=== PATIENT | female | born 1980 | race Caucasian/White ===

== ENCOUNTER 2020-06-10 14:34 | Emergency (ER) | payer OTHER, SELFPAY ==
--- NOTE | 2020-06-10 14:49 | ED.GENADULT ---
HPI - General Adult General Chief complaint: Nausea/Vomiting/Diarrhea Stated complaint: nausea Time Seen by Provider: 06/10/20 14:53 Source: patient and RN notes reviewed Mode of arrival: ambulatory Limitations: no limitations History of Present Illness HPI narrative: She is a 39 years old female presents to the office for an evaluation of worsen nausea and vomiting. Symptom has been going off-and-on for a year or so. Symptom is worse at times and usually resolved on its own. Symptoms often started abruptly and and abruptly. She had a work-up with a doctor through a blood test with unremarkable finding. She did not follow-up after that. Her symptom has gotten worse after she got her ear cleanout a couple days ago. Denies new medication, food, or major life event changes. Denies chance of . Related Data Home Medications Medication Instructions Recorded Confirmed duloxetine 30 mg PO DAILY 06/10/20 06/10/20 gabapentin 300 mg BID 06/10/20 06/10/20 levonorgestrel-ethinyl estrad 1 tablet DAILY 06/10/20 06/10/20 Allergies Allergy/AdvReac Type Severity Reaction Status Date / Time metoclopramide Allergy Intermediate PARALYSIS Verified 06/10/20 14:38 prochlorperazine Allergy Intermediate PARALYSIS Verified 06/10/20 14:38 Review of Systems Review of Systems: Narrative: CONSTITUTIONAL: Denies fever CARDIOVASCULAR: Denies chest pain, palpitation RESPIRATORY: Denies dyspnea GASTROINTESTINAL: Denies abdominal pain, diarrhea. Reports nausea and vomiting SKIN: Denies rash MUSCULOSKELETAL: Denies acute back pain NEUROLOGIC: Denies lightheaded. Reports intermittent dizziness describes as motion sickness. All other systems reviewed are negative, except as documented in HPI. [facility] Past Medical History Medical History (Updated 06/10/20 @ 15:10 by TEX Chavez) Anxiety and depression Trigeminal neuralgia Surgical History Surgical History Hx of tonsillectomy Family History Family History (Updated 06/10/20 @ 15:02 by TEX Chavez) Mother Hiatal hernia Comments At time of signature, I agree with nursing past medical, surgical, social and family history. There is no relevant family history pertinent to the presenting complaint. Exam Narrative: Exam Narrative: GENERAL: This is a well-nourished, well-developed patient, in no apparent distress. EYES: PERRL. EMOI. Sclera clear/white. Vision is grossly intact. EARS: External ears normal, auditory canals clear and without drainage, TMs normal without perforation. Hearing grossly intact. NOSE: External nose normal with no obvious nasal discharge, nares without redness, no rhinorrhea. THROAT: Mucous membranes moist, posterior pharynx clear. NECK: Neck supple, non-tender without lymphadenopathy, masses or thyromegaly. CARDIOVASCULAR: Regular rate and rhythm without murmurs, gallops, or rubs. RESPIRATORY: Clear to auscultation. Breath sounds equal bilaterally. No wheezes, rales, or rhonchi. GASTROINTESTINAL: Abdomen soft, non-tender, nondistended. Bowel sounds are active. No hepato-splenomegaly, or palpable masses. No guarding. SKIN: warm, intact with no suspicious lesions or rash, good texture and turgor. NEURO: awake, alert, and oriented to person, place and time. There were no obvious focal neurologic abnormalities. Steady gait EXTREMITIES: Normal range of motion. Sri Coma Scale Eye Opening: Spontaneous 4 Sri Coma Scale Motor: Obeys Commands 6 Sri Coma Scale Verbal: Oriented 5 Medical Decision Making MDM Narrative Medical decision making narrative: Discharge instructions reviewed with patient, as well as provided in writing per nursing staff. The instructions also include specific and strict return/GO TO THE ER as well as f/u information. All questions have been answered, and the patient deny any further questions with discharge and discharge plan. Differential Diagnosis Dif
== END 2020-06-10 15:10 | disposition home or self-care (01) ==
PROVIDERS: Emergency Provider Nurse Practitioner; PCP Family Medicine
DX: R11.2 Nausea with vomiting, unspecified (principal); G50.0 Trigeminal neuralgia
CPT/HCPCS: 99213; G0463

== ENCOUNTER 2022-02-21 09:12 | Outpatient (CLI) | payer OTHER, SELFPAY ==
--- NOTE | ~2022-02-21 | US_ITS ---
EXAMINATION: US pelvic complete DATE: 02/21/2022 11:36 INDICATION: Abdominal pain TECHNIQUE: Multiple transabdominal and endovaginal sonographic images of the pelvis were obtained. COMPARISON: None. FINDINGS: The uterus measures 9.5 x 5.1 x 6.2 cm. The endometrial complex measures 10 mm. The right o vary measures 3.3 x 2.4 x 1.8 cm. The left ovary measures 3.6 x 2.3 x 1.9 cm. There is normal vascula r flow in the ovaries. There is no free fluid in the pelvis. IMPRESSION: 1. No sonographic correlate for the patient's symptoms. Reviewed, dictated and finalized at location F.
--- NOTE | ~2022-02-21 | US_ITS ---
US abdomen complete DATE: 02/21/2022 10:20 INDICATION: Abdominal pain TECHNIQUE: Real-time imaging and Doppler analysis of the abdomen COMPARISON: None FINDINGS: No hepatic or pancreatic space-occupying mass lesion. Normal hepatopedal portal venous flow . No gallstones or gallbladder wall thickening or abnormal pericholecystic fluid collection. Negative sonographic Figueroa's sign. The common bile duct measures 4.8 mm, normal. No renal mass lesion or hydronephrosis. Normal splenic size. Normal caliber of the abdominal aorta. The inferior vena cava is unremarkable. IMPRESSION: No significant abnormality Reviewed, dictated and finalized at Location [facility]. Reviewed, dictated and finalized at location A. IMPRESSION: No significant abnormality
== END 2022-02-21 09:13 | disposition home or self-care (01) ==
PROVIDERS: PCP Family Medicine; Visit Provider Nurse Practitioner Family
DX: R10.9 Unspecified abdominal pain (principal)
CPT/HCPCS: 76700; 76856

== ENCOUNTER 2023-06-06 09:37 | Outpatient (CLI) | payer OTHER, SELFPAY ==
--- NOTE | ~2023-06-06 | CT_ITS ---
EXAMINATION: CT sinus wo con DATE: 06/06/2023 09:56 INDICATION: Atypical facial pain TECHNIQUE: Computed tomography (CT) of the paranasal sinuses was performed without intravenous contra st. The dose-length product (DLP) was 328.15 mGy-cm. Iterative reconstruction was used. COMPARISON: None FINDINGS: There is normal development and pneumatization of the paranasal sinuses. The frontal, sphen oid, ethmoid, and maxillary sinuses are clear. The bilateral ostiomeatal complexes are patent. Visual ized soft tissues are unremarkable. IMPRESSION: Normal CT sinus findings Reviewed, dictated and finalized at location K. IMPRESSION: Normal CT sinus findings
== END 2023-06-06 09:38 | disposition home or self-care (01) ==
PROVIDERS: PCP Family Medicine; Visit Provider Otolaryngology
DX: R51.9 Headache, unspecified (principal)
CPT/HCPCS: 70486

== ENCOUNTER 2024-11-24 14:39 | Emergency (ER) | payer OTHER, SELFPAY ==
[2024-11-24 14:45] VITALS: BP 115/74; PULSE 88; RESP 16; TEMP 37.4; O2SAT 99
--- NOTE | 2024-11-24 14:47 | ED.FEMALEGU ---
HPI - Female Genitourinary General Chief complaint: Urogenital-Female Stated complaint: UTI Time Seen by Provider: 11/24/24 15:01 Source: patient, RN notes reviewed and old records reviewed Mode of arrival: ambulatory Limitations: no limitations History of Present Illness HPI Narrative: patient presents with complaints of 2 days of urinary frequency and burning. She reports mild back pain, mild abdominal pain. Denies tressa hematuria. Denies fever, chills, sweats. Denies any injury or trauma. Related Data Home Medications ?Medication ?Instructions ?Recorded ?Confirmed ?Last Taken ?Type duloxetine 30 mg capsule,delayed 30 mg PO DAILY 06/10/20 06/10/20 Unknown History release gabapentin 300 mg capsule 300 mg BID 06/10/20 06/10/20 Unknown History levonorgestrel-ethinyl estradiol 1 tablet DAILY 06/10/20 06/10/20 Unknown History 0.1 mg-20 mcg tablet rimegepant 75 mg disintegrating See Rx Instructions .Route 06/10/20 06/10/20 Unknown History tablet (Nurtec ODT) .COMPLEX PRN Migraine Headache Allergies Allergy/AdvReac Type Severity Reaction Status Date / Time metoclopramide Allergy Severe PARALYSIS Verified 11/24/24 14:42 prochlorperazine Allergy Severe PARALYSIS Verified 11/24/24 14:42 Review of Systems Review of Systems: All systems reviewed & are unremarkable except as noted in HPI and below Constitutional: Constitutional: Reports no additional constitutional complaints ENT: Reports system reviewed and no additional complaints, except as documented Cardiovascular: Cardiovascular: Reports no additional cardiovascular complaints Respiratory: Respiratory: Reports no additional respiratory complaints Gastrointestinal: Gastrointestinal: Reports no additional gastrointestinal complaints Genitourinary: Genitourinary: Reports no additional female genitourinary complaints, Reports as per HPI, Reports nocturia and Reports dysuria [facility] Past Medical History Medical History (Updated 11/24/24 @ 15:05 by Missy Lopez APRN) Anxiety and depression Trigeminal neuralgia Surgical History Surgical History Hx of tonsillectomy Family History Family History Mother Hiatal hernia Social History Social History : Female Comments At the time of my signature, I reviewed and agree with the nursing past medical, surgical, social, and family history. There is no relevant family history pertinent to the patient complaint. Exam Const: General: cooperative, no acute distress, alert and awake Orientation/consciousness: oriented to person, oriented to place and oriented to time HENMT: Head: normal to inspection Resp: Effort & Inspection: normal respiratory effort and able to speak in complete sentences Auscultation: clear to auscultation bilaterally, no crackles, no rales, no rhonchi and no wheezes Cardio: Palpation: normal PMI Rate: regular rate Rhythm: regular rhythm Heart sounds: S1 normal heart sound present and S2 normal heart sound present : General: Yes bladder normal to palpation and Yes no CVA tenderness Neuro: General: oriented to person, oriented to place and oriented to time Cranial nerves: Yes CN's II-XII intact bilaterally Psych: Appearance: grossly normal Thought process: Normal thought process present Insight: Good insight present (Psych) Judgement: Good judgement present (Psych) Course Course Level of Care: Express Care Visit Vital Signs Vital signs: Reviewed MDM - Female Genitourinary MDM Narrative Medical decision making narrative: Reassuring physical exam. No CVA tenderness. Nontoxic appearing. UA concerning for UTI. Start Macrobid. Culture sent. Discharge instructions reviewed with patient, as well as provided in writing per nursing staff. The instructions also include specific and strict return/GO TO THE ER as well as f/u information. All questions have been answered, and the patient deny any further questions with discharge and discharge plan. Some parts of this dictation were generated by voice recognition software and may contain typographical and/or grammatical inaccuracies. Differential Diagnosis Differential diagnosis: Likely urinary tract infection and cystitis Medical Records Attestation: I reviewed the patient's medical records. Lab Data Attestation: I reviewed the patient's lab results. Discharge Plan Discharge Clinical Impression: Urinary tract infection Qualifiers: Urinary tract infection type: site unspecified Hematuria presence: with hematuria Qualified Code(s): N39.0 - Urinary tract infection, site not specified Patient Disposition: Home, Self-Care Condition: Stable Instructions: Antibiotic Form, Urinary Tract Infection in Women (ED) Additional Instructions: take medications as prescribed. Follow-up with primary care provider. Emergency department for new or worse symptoms Patient Language: [place] Prescriptions: New nitrofurantoin monohyd/m-cryst [Macrobid] 100 mg capsule 100 mg PO Q12H 5 Days Qty: 10 0RF Rx Instructions: must administer with a meal/food No Action levonorgestrel-ethinyl estrad 0.1-20 mg-mcg tablet 1 tablet DAILY gabapentin 300 mg capsule 300 mg BID duloxetine 30 mg capsule,delayed release(DR/EC) 30 mg PO DAILY ondansetron HCl [Zofran] 4 mg tablet 4 mg PO Q6H PRN (Reason: nausea and vomiting) Qty: 15 0RF Nurtec ODT 75 mg tablet,disintegrating See Rx Instructions .ROUTE .COMPLEX PRN (Reason: Migraine Headache) Rx Instructions: 75 mg Follow-up/Referrals: Lukasz,MD [place] [Primary Care Provider] - 2 Weeks Time of Disposition: 15:06
[2024-11-24 14:55] LABS: EDUAAPPEAR Cloudy; EDUABILI Negative (Negative); EDUABLOOD Trace (Negative); EDUACOLOR1 Dark; EDUAGLUCOSE Negative (Negative); EDUAKETONE Trace (Negative); EDUALEUKO Trace (Negative); EDUANITRATE Negative (Negative); EDUAPROTEIN 2+ (Negative); EDUAUROBILI 0.2
--- OUTSIDE RECORDS SUMMARY | 2024-11-24 15:25 | XMS_ITS | Clinical Summary ---
Author Organization [facility] Virtual Care Address [address] [place] [phone] Phone Care Team Providers Care Human Resource Adviser Name Role Phone AnivalSandhya moya YESI Primary Care Provider [phone] Allergies Active Allergy Reactions Criticality Noted Date Comments Naproxen Unknown 06/24/2023 Metoclopramide Dystonia High 05/06/2023 Medications rimegepant (Nurtec ODT) tablet,disinte grating Nurtec ODT 75 mg disintegrating tablet Active cholecalcifero l (VITAMIN D-3) 2000 unit capsule Take 1 capsule (2,000 Units total) by mouth daily Active PARoxetine (PAXIL) 20 mg tabletIndicati ons:Anxiety with Depression Take 1 tablet (20 mg total) by mouth every morning 90 tablet 3 4 025 Active cariprazine (Vraylar) 1.5 mg capsule capsuleIndicat ions:Moderate episode of recurrent major depressive disorder (HCC) Take 1 capsule (1.5 mg total) by mouth daily 90 capsule 3 4 Active Active Problems Problem Noted Date Diagnosed Date Generalized anxiety disorder 06/25/2024 Assessment & Plan (06/25/2024 11:41 AM CDT): We will continue Vraylar 1.5 mg daily with the intent to decrease Paxil to 10 mg over the next several weeks. She will follow up in 3 months. Patient denies any SI/HI. Counseling is encouraged. Recommend exercise and healthy diet. Patient is having libido side effects from the Paxil. We are going to decrease it. I discussed with her possibly stopping the Paxil and increasing the Vraylar 3 mg daily. Vraylar is known to have less sexual side effects. I discussed with patient that Vraylar isn't indicated for anxiety but often. She will continue Paxil for now. We will adjust medications if needed. BMI 24.0-24.9, adult 02/24/2024 Assessment & Plan (06/25/2024 11:38 AM CDT): Patient's weight is still within a normal BMI however she has gained approximately 15 lb since starting Paxil and Vraylar. She would like to work on losing 10 lb. She would like to do short term phentermine. I am in agreement with this. I also discussed utilizing weight lifting to help increase metabolism. She will follow up in 3 months Abdominal fullness 02/11/2024 Gastroesophageal reflux disease 10/15/2023 Assessment & Plan (06/25/2024 11:39 AM CDT): Tums p.r.n. Assessment & Plan (12/11/2023 1:38 PM WOOD CARVING LATHE OPERATOR): Currently controlled without regular medication. Continue Tums p.r.n. as needed. Abnormal uterine bleeding (AUB) 07/25/2023 Assessment & Plan (07/25/2023 10:47 AM CDT): Patient reports abnormal uterine bleeding. Hormone testing for menopause. Patient reports it. Approximately every 2 weeks. We discussed using progesterone only therapy. Patient would like to try it. Recurrent major depression 06/24/2023 Assessment & Plan (06/25/2024 11:39 AM CDT): We will continue Vraylar 1.5 mg daily with the intent to decrease Paxil to 10 mg over the next several weeks. She will follow up in 3 months. Patient denies any SI/HI. Counseling is encouraged. Recommend exercise and healthy diet. Patient is having libido side effects from the Paxil. We are going to decrease it. I discussed with her possibly stopping the Paxil and increasing the Vraylar 3 mg daily. Vraylar is known to have less sexual side effects. Assessment & Plan (12/11/2023 1:36 PM WOOD CARVING LATHE OPERATOR): Increase paxil to 20 mg. Pt is feeling better on 10mg but feels she could improve. We will start Vraylar 1.5 mg daily. Follow up in 6 weeks. Assessment & Plan (07/25/2023 10:40 AM CDT): Increase paxil to 20 mg. Pt is feeling better on 10mg but feels she could improve. Assessment & Plan (06/24/2023 3:03 PM CDT): Patient reports being depressed and anxious. Her PHQ is elevated at 18. She relates this to ongoing health issues. We will start Paxil 10 mg tablets daily and follow-up in 1 month. She denies SI/HI. We will re-evaluate in 1 month at her well-woman exam. Inguinal lymphadenopathy 03/05/2023 Assessment & Plan (06/24/2023 2:22 PM CDT): Hx of inguinal lymphadenopathy and chronic LLQ pain. Will order abd pelvis CT Subclinical hypothyroidism 03/02/2020 Assessment & Plan (12/11/2023 1:36 PM WOOD CARVING LATHE OPERATOR): Labs normal. Assessment & Plan (06/24/2023 2:10 PM CDT): History of subclinical hypothyroidism labs pending. Hyperlipidemia 02/02/2019 Assessment & Plan (06/25/2024 11:39 AM CDT): Continue following a heart healthy diet. Assessment & Plan (12/11/2023 1:38 PM WOOD CARVING LATHE OPERATOR): Within normal limits. Continue a heart healthy Assessment & Plan (06/24/2023 2:11 PM CDT): History of elevated hyperlipidemia labs pending. Vitamin D deficiency 02/02/2019 Assessment & Plan (06/25/2024 11:39 AM CDT): Continue vitamin-D supplement. Assessment & Plan (12/11/2023 1:37 PM WOOD CARVING LATHE OPERATOR): Continue vitamin-D supplement. Assessment & Plan (06/24/2023 2:10 PM CDT): History of vitamin-D deficiency labs pending. Resolved Problems Problem Noted Date Diagnosed Date Resolved Date Venous congestion 12/18/2023 06/25/2024 Assessment & Plan (12/18/2023 2:57 PM WOOD CARVING LATHE OPERATOR): Impression: Patient has discoloration to the toes of bilateral feet while in the dependent position. She denies any symptoms of claudication, ischemic rest pain or ulcerations to her lower extremity. Patient has palpable pulses to bilateral lower extremities. Plan: No surgical interventions are indicated. -patient to follow-up on an as-needed basis. LUQ abdominal pain 10/15/2023 4 Abnormal loss of weight 10/15/202305/29 Assessment & Plan (12/11/2023 1:40 PM WOOD CARVING LATHE OPERATOR): Weight loss has plateaued. Patient is currently at a BMI of 21.97. She is gained 9 lb since last visit, however this is with her clothes And shoes on. Nausea without vomiting 10/15/202305/29 Encounter for well woman jenaro ricks with routine gynecological exam 07/25/2023 06/25/2024 Assessment & Plan (07/25/2023 10:39 AM CDT): Pap smear with HPV cotesting completed. Mammogram completed. We will notify the patient of all results. Follow up in one year or sooner if needed. Patient verbalizes understanding regarding plan of care and all questions answered. LLQ abdominal pain 06/24/2023 4 Mass of right breast 03/20/2023 024 Pain of right breast 03/05/2023 023 Axillary lymphadenopathy 02/04/2023 Assessment & Plan (06/24/2023 2:13 PM CDT): There is left axillary lymphadenopathy present on exam today. Due to weight loss, and ongoing pain that patient is experiencing we will obtain chest CT. Immunizations Name Administration Dates Next Due Influenza, Quadrivalent, Keri l Culture-based MDCK, Antibiotic Free, Intramuscular 10/01/2018 Influenza, Quadrivalent, Keri l Culture-based MDCK, Preservative Free, Antibiotic Free, Intramuscular 08/15/2023,08/31/2021 Influenza, Quadrivalent, Spl it, Intramuscular 09/01/2020,09/10/2019 Influenza, Quadrivalent, Spl it, Preservative Free, Intramuscular 08/21/2022,09/01/2020,09/02/2017 Influenza, Unspecified 12/11/2023(Deferr ed: Patient decision),07/28/2022(Deferred: Patient decision),09/10/2019,09/08/2013,2011 [employer] ([employer] SARS-CoV-2 Vaccination 02/01/2021 Tdap 09/02/2017 Surgical History Surgery Date Site/Laterality Comments TONSILLECTOMY 10/27/2002 - 10/26/2003 COLONOSCOPY 10 years ago UPPER GASTROINTESTINAL ENDOSCOPY 01/28/2024 Medical History Medical History Date Comments Depression Headache History of chicken pox Family History Medical History Relation Name Comments Multiple sclerosis Father Stomach cancer Maternal Grandmother Diverticulitis Mother Hyperlipidemia Mother Hypertension Mother Pancreatic cancer Paternal Grandfather Relation Name Status Comments Father Maternal Grandmother Mother Paternal Grandfather Social History Tobacco Use Types Packs/Day Years Used Date Smoking Tobacco: Never Smokeless Tobacco: Never Tobacco Cessation:Counseling Given: Not Answered AUDIT-C Answer Date Recorded Q1: How often do you have a drink containing alc ohol? Monthly or less 06/25/2024 Q2: How many drinks containi ng alcohol do you have on a typical day when you are drinking? 1 or 2 06/25/2024 Q3: How often do you have si x or more drinks on one occasion? Never 06/25/2024 PHQ-2 Answer Date Recorded PHQ-2 Total Score (If total score is 3 or more points, staff should administer the PHQ-9) 0 06/25/2024 Personal Safety Answer Date Recorded Have you ever been in or are you currently in a harmful physical or emotional relationship or is someone making you feel afraid or unsafe? Denies 01/28/2024 Comments No Sex and Gender Information Value Date Recorded Sex Assigned at Not on file Legal Sex Female 5:46 AM WOOD CARVING LATHE OPERATOR Gender Identity Female 12/07/2023 12:22 AM WOOD CARVING LATHE OPERATOR Sexual Orientation Straight 12/07/2023 12 :22 AM WOOD CARVING LATHE OPERATOR Obstetrics History Last Filed Vital Signs Vital Sign Reading Time Taken Comments Blood Pressure 122/74 06/25/2024 9:39 AM CDT Pulse 72 06/25/2024 9:39 AM CDT Temperature 36.8 ??C (98.2 ??F) 06/25/2024 9:39 AM CD T Respiratory Rate 16 06/25/2024 9:39 AM CDT Oxygen Saturation 96% 06/25/2024 9:39 AM CDT Inhaled Oxygen Concentration - - Weight 63.2 kg (139 lb 6.4 oz) 06/25/2024 9:39 A M CDT Height 160 cm (5' 3 ) 06/25/2024 9:39 AM CDT Body Mass Index 24.69 06/25/2024 9:39 AM CDT Plan of Treatment Health Maintenance Due Date Last Done Comments Hepatitis C Screening 1982 Hepatitis B Screening 2000 Breast Cancer Screening-Mammogram 05/06/2024 05/06/2023 Covid-19 Vaccine ( season) 2024 08/21/2022, 02/01/2021 Influenza Vaccine (#1) 2024 , 08/21/2022, 08/31/2021, Additional history exists Cervical Cancer Screening 07/25/2024 07/25/2023, Regular Well Visit/Exam 18-64 07/25/2024 07/25/2023 Depression Screening 06/25/2025 06/25/2024, 02/24/2024, 12/11/2023, Additional history exists DTaP/Tdap/Td Vaccine (2 - Td or Tdap) 09/02/2027 09/02/2017 HPV Vaccines Aged Out No longer eligi ble based on patient's age to complete this topic Pneumococcal vaccine <65 Aged Out No longer eligible based on patient's age to complete this topic Procedures Procedure Name Priority Date/Time Associated Diagnosis Comments HIGH RISK HPV DNA DETECTION WITH GENOTYPING Routine 07/25/2023 10:25 AM CDT Cervical cancer screening from Last 3 Months or Most Recently Relevant to Health Maintenance Results * High Risk HPV DNA Detection with Genotyping (Molecular component) (07/25/2023 10:25 AM CDT) HPV HR 16 Not Detected Not Detected JUANIS MCGUIRE Comment:Testing performed by : [facility], [address] [place]., [address] HPV HR 18 Not Detected Not Detected JUANIS MCGUIRE Comment:Testing performed by : [facility], [address] [place]., [address] HPV HR Non 16/18 Not Detected Not Detected JUANIS MCGUIRE Comment: Interpretive Data Nucleic acid amplification for detection of high-risk Human Papilloma virus (HPV) is performed by the Rafaela Ernesto 6800 HPV test. ??This assay specifically detects HPV-16 and HPV-18 genotypes. ??The following HPV genotypes are detected as high-risk HPV: ?? HPV-31, 33, 35, ,39, 45, 51, 52, 56, 58, 59, 66, and 68. ??This assay has been approved by the [place] Food and Drug Administration for detection of HPV in cervical specimens collected by a physician using an endocervical brush/spatula or cervical broom and placed in the ThinPrep Pap Test PreservCyt collection containers. ??The performance characteristics of this test have been verified by the [facility] Molecular Infectious Disease laboratory. Correlate with separately reported cytology results, as applicable. Interpretive data last revised 23 Testing performed by: [facility], [address] [place]., [address] Endocervical 07/25/2023 10:2 5 AM CDT 07/28/2023 12:43 PM CDT Narrative JUANIS MCGUIRE - 07/29/2023 1:57 AM CDT Clinical history and diagnosis->screening Testing type->Screening Last menstrual period (date if known)->unknown Menstrual status->Irregular Contraceptive use->None Previous atypical cytology->None us Sandhya Mosquera NP LAB BODY FLUIDS AND STOOLS OR DERABLES Final Result Performing Organization Address City/State/[facility] [place] Phone Number JUANIS MH [address] [facility] Department of Laboratories [place], [place] [phone] from Last 3 Months or Most Recently Relevant to Health Maintenance Insurance [facility] [employer] [facility] [employer] Address: [address] [address] [place] [address] [facility] [employer] [facility] [employer] Address: [address] [address] [place] [address] [facility] [employer] [facility] [employer] Address: [address] [address] [place] [address] Advance Directives For more information, please contact: [phone] * Full Code (Latest Code Status on File) Date Activated Date Inactivated Comments 01/28/2024 10:55 AM 01/28/2024 5:56 PM * Full Code Date Activated Date Inactivated Comments 01/28/2024 10:55 AM 01/28/2024 10:55 AM Care Teams Human Resource Adviser Relationship Specialty Start Date End Date Sandhya Mosquera NP [address] [place] [address] PCP - General Internal Medicine 06/24/23
--- OUTSIDE RECORDS SUMMARY | 2024-11-24 15:25 | XMS_ITS | Data Portability ---
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 Explained about different options. Will do labs and CT A&P wo. Educated pt about insurance limitations and delay for getting authorization. Pt declined to do labs here (due to cost issues). Pt declined for Rx med. OTC meds as directed. Good liquid and fiber intake explained. BP diary education given and call us if any concerns. Educated pt about alarming symptoms to monitor at home and call us back or get checked in ED. Pt verbalized understanding it. F/u in 1 week. Not available 01/02/2023 12:39:43 Plan of Treatment Reminders Order Date Submit Date Provider Last Modified By Organization Details Last Modified Time Details Appointments None recorded. Lab urinalysis complete, reflex culture 2022 023 [facility], [address], [place], [address], 3 10:04:07 CBC w/ auto diff 2022 023 ANITA [facility], [address], [address], [place], [address], 3 09:42:33 CMP, serum or plasma 2022 023 ANITA [facility], [address], [address], [place], [address], 3 09:42:33 lipase, serum or plasma 2022 023 [email or web address] [facility], [address], [address], [place], [address], 3 10:04:06 amylase, serum or plasma 2022 023 [email or web address] [facility], [address], [address], [place], [address], 3 10:04:07 ESR (erythrocyt e sedimentati on rate), blood 2022 023 ANITA [facility], [address], [address], [place], [address], 3 09:42:33 beta-HCG, qualitative , serum or plasma 2022 023 [facility], [address], [address], [place], [address], 3 10:04:07 Referral None recorded. Procedures None recorded. Surgeries None recorded. Imaging CT, abdomen + pelvis, w/o contrast - please call pt to schedule Lt sided abdominal pain, Suprapubic area pain for last 1 week, not getting better 2022 023 [facility], [address] [place] [address] [address], [place], [address], 3 08:17:47 MAMMO, screening, digital, bilateral 2022 023 [email or web address] Not available 09:40:19 US, neck, soft tissue - *Please call patient to schedule* 2022 023 ANITA Not available 05/23/202 3 14:22:57 US, axilla 2022 023 Not available 3 08:48:00 US, breast, unilateral - knots to right lateral breast. Mammogram negative. Are these lymph nodes?? 2022 023 [email or web address] Not available 3 09:19:00 Medication Orders None recorded. Patient TargetsNo targets recorded. Patient Instructions Encounter Date Encounter Id Patient Instructions Last Modified By Organization Details Last Modified Time 02/04/2023 [id number] [email or web address] Not available 02/04 08:26:41 Reason for Referral None Reported. Results Created Date Observation Date Name Description Value Unit Range Abnormal Flag Note LastModifiedBy Organization Detail LastModifiedTime 02/22/20 22 02/21/2022 US, abdom en + pelvi s No observ ation record ed. [address], [address], 01/02/2023 11:36:35 02/22/20 22 02/21/2022 US, abdom en + pelvi s No observ ation record ed. [address], [address], 01/02/2023 11:36:35 02/08/20 23 02/07/2023 MAMMO , scree kathy, digit al, bilat eral [facility] [address] [place], [place] [id number] [phone] Patien t Name: PINO AC Access ion #: [id number] Sex: F : 1979 5 Locati on: RAD Attend ing Physic rose: PALLAVI ROJO Orderi ng Physic rose: PALLAVI ROJO Exam Date: 023 7:13 AM Exam Name: MG SCRLorenzo BREAST DAO BILAT Admitt ing Diagno sis(es ): MAMMOG MERCEDES REPORT - FINAL EXAM: MG SCRN BREAST DAO BILAT HISTOR Y: SCREEN ING MAMMOG ANALIA COMPAR GALILEA: None TECHNI QUE: Bilate ral CC and MLO views of the breast s were perfor med. Digita l Mammog mercedes images were obtain ed. CAD (compu ter assist ed detect ion) was utiliz ed. 3D Digita l breast tomosy nthesi s was perfor med and used in the interp retati on of images . FINDIN GS: The breast s are extrem rain dense, which lowers the sensit ivity of mammog mercedes. No masses , asymme tries, suspic ious calcif icatio ns, or betty ectura l Page 1 of 2 [facility] [place] Margarita martin Name: PINO AC Access ion #: [id number] Sex: F : 1979 5 Exam Date: 023 7:13 AM Exam Name: MG SCRN BREAST DAO BILAT Admitt ing Diagno sis(es ): distor tion are seen. IMPRES BOOGIE: BIRADS 1: Assess ment comple te. Negati ve. Recomm end annual screen ing mammog mercedes. Accord ing to the [employer], yearly mammog charissa are recomm ended starti ng at age 40 and contin uing as long as the woman is in good health . Clinic al Breast Exam should be part of the period ic health exam-a bout every 3 years for women in their 20s and 30s and every year for women 40 and over. Breast self-e xam is an option for women in their 20s. Any breast change noted on the breast self-e xam she would be report ed prompt ly to the margarita martin[facility] er. A negati ve mammog mercedes report should not discou rage follow -up or biopsy of a clinic ally signif icant findin g and/or abnorm ality. Dense breast tissue may obscur e small neopla sms. This margarita martin has been entere d into a mammog mercedes remind er system with a target date for her next mammog analia. Create d and electr onical ly signed by: Dayne edwarsd MD Signed Date: 4:55 PM (CT) Dictat ed by: Dayne edwards MD DD: 4:55 PM (CT) DT: 4:55 PM (CT) Page 2 of 2 [email or web address] [facility] (Imaging) [address], [place], [address], 03/03/2023 09:40:19 03/18/20 23 03/18/2023 US, axill a [facility] [address] [facility] [address], [place] [address] Margarita martin Name: PINO AC Access ion #: [id number] Sex: F : 1979 5 Locati on: RAD Attend ing Physic rose: PALLAVI ROJO Orderi ng Physic rose: PALLAVI ROJO Exam Date: 12:41 PM Exam Name: US BREAST LIMITE D RT Admitt ing Diagno sis(es ): RADIOL OGY REPORT - FINAL EXAM: US BREAST LIMITE D RT HISTOR Y: rt breast pain and rt axilla lympha denopa thy 42-yea r-old female with right breast pain and questi onable axilla ry palpab le abnorm ality. COMPAR GALILEA: Mammog mercedes dated0 . TECHNI QUE: Focuse d ultras ound evalua tion of the right upper outer breast and right axilla was perfor med. FINDIN GS: No suspic ious solid masses or cystic lesion s are identi fied about the right upper outer breast or axilla . There is a benign -appea ring intram ammary lymph node in the right upper outer breast 10 o'cloc k locati on 5 cm from the nipple with thin cortic es, promin ent fatty hilum, measur ing up to 6.[address] Page 1 of 2 [facility] [place] Margarita martin Name: PINO AC Access ion #: [id number] Sex: F : 1979 7 Exam Date: 12:41 PM Exam Name: US BREAST LIMITE D RT Admitt ing Diagno sis(es ): dimens ion. There are multip le benign -appea ring lymph nodes in the right axilla , the larges t of which measur es up to [address] dimens ion, thin cortex and promin ent fatty hilum. IMPRES BOOGIE: BIRADS 2: Assess ment comple te. Benign findin gs. Benign -appea ring lymph nodes are identi fied in the right upper outer breast and right axilla . No imagin g follow -up is necess evie for these benign lesion s. Recomm end return ing to annual screen ing mammog mercedes. Create d and electr onical ly signed by: Jair machuca MD Signed Date: 1:03 PM (CT) Dictat ed by: Jair machuca MD DD: 1:03 PM (CT) DT: 1:03 PM (CT) Page 2 of 2 [email or web address] [facility] (Imaging) [address] [place], [address], 03/20/2023 12:45:46 03/18/20 23 03/18/2023 US, head + neck, soft tissu e [facility] [address] [address] [phone] Patien t Name: PINO AC Y Access ion #: [id number] Sex: F : 1979 5 Locati on: RAD Attend ing Physic rose: PALLAVI ROJO Orderi ng Physic rose: PALLAVI ROJO Exam Date: 12:41 PM Exam Name: US NECK HEAD SOFT TISSUE Admitt ing Diagno sis(es ): RADIOL OGY REPORT - FINAL EXAM: US NECK HEAD SOFT TISSUE HISTOR Y: cervic al lympha denopa thy 42-yea r-old female with right infra- auricu lar palpab le abnorm ality. COMPAR GALILEA: None availa ble. TECHNI QUE: Ultras ound examin ation of the right infra- auricu lar region was perfor med. FINDIN GS: See below. IMPRES BOOGIE: 1. No masses , enlarg ed lymph nodes, or abnorm al fluid collec tions are identi fied in the right infra- auricu lar region . Page 1 of 2 [facility] mario Name: PINO AC Access ion #: [id number] Sex: F : 1979 5 Exam Date: 12:41 PM Exam Name: US NECK HEAD SOFT TISSUE Admitt ing Diagno sis(es ): 2. Normal sonogr aphic evalua tion of the right paroti d gland. Create d and electr onical ly signed by: Jair machuca MD Signed Date: 1:18 PM (CT) Dictat ed by: Jair machuca MD DD: 1:18 PM (CT) DT: 1:18 PM (CT) Page [address] (Imaging) [address] [place], [address], 03/20/2023 12:45:11 03/18/2003/18/2023 US, neck, soft tissu e No observ ation record ed. [address] [place], [address], 03/19/2023 10:14:51 05/06/2005/06/2023 US, breas t, unila teral No observ ation record ed. [facility] [address] [place] [address], [address], 05/07/2023 16:19:55 06/06/2006/06/2023 CT, sinus es, w/o contr ast No observ ation record ed. [email or web address] [address], [place], [address], 06/07/2023 13:59:37 Result Notes None recorded. 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 2022 Marycarmen Rojo NP [address], [address], [place], [address] , [employer] [facility] [employer] 3 08:26:22 Pain of right breast 2918550198 Active 2022 Marycarmen Rojo NP [address], [address], [place], [address] , [employer] 3 12:29:31 Cervical lymphaden opathy 957329869 Active 2022 Marycarmen Rojo NP [address], [place] [address], [place], [address] , [employer] 3 12:30:23 Mass of right breast 90095963572 713794 Active 2022 Marycarmen Rojo NP [address], [address], [place], [address] , [employer] [facility] [employer] 3 12:46:12 Impacted cerumen of bilateral ears 43247649992 63998 Active 2018 Not Available [facility] 3 04:53:44 Wants to lose weight 249436528 Active 2019 Not Available [employer] 3 04:53:44 Overweigh t 605199582 Active 2018 Not Available [facility] 3 04:53:44 Trigemina l neuralgia 31900024 Active 2016 Not Available [facility] 3 04:53:44 Vitamin D deficienc y 70690541 Active 2018 Not Available [facility] 3 04:53:44 Depressiv e disorder 00707508 Active 2018 Not Available [facility] 3 04:53:44 Elevated blood-pre ssure reading without diagnosis of hypertens ion 445085278 Active 2019 Not Available [facility] 3 04:53:44 Migraine 46560807 Active 2016 Not Available [facility] 3 04:53:45 Chronic sinusitis 90549507 Active 2016 Not Available [facility] 3 04:53:45 Subclinic al hypothyro idism 83839955 Active 2019 Not Available [facility] 3 04:53:45 Hyperlipi demia 52112470 Active 2018 Not Available [facility] 3 04:53:45 Joint pain 74446443 Active Not Available [facility] 3 04:53:45 Dysthymia 31031626 Completed 201603/04/2019 Not Available [facility] 3 04:53:45 Problem Notes None recorded. Procedures Surgical History Date Name Laterality Status Provider Name and Address Organization Details Recorded Time tonsillectomy completed Not Available [facility] th 12/25/2022 04:42:48 [place] [facility] completed Not Available [facility] 12/25/2022 04:42:48 Imaging Results Imaging Date Name Status LastModified by Organiz ation Details LastModified Time 02/21/2022 US, abdomen + pelvis completed [address] [place] [address], [address], 01/02/2023 11:36:35 02/21/2022 US, abdomen + pelvis completed [email or web address] [address], [place], [address], 01/02/2023 11:36:35 02/07/2023 MAMMO, screening, digital, bilateral completed [email or web address] [facility] (Imaging) [address] [place], [address], 03/03/2023 09:40:19 03/18/2023 US, axilla completed [email or web address] [facility] (Imaging) [address] [place], [address], 03/20/2023 12:45:46 03/18/2023 US, head + neck, soft tissue completed [email or web address] [facility] (Imaging) [address] [place], [address], 03/20/2023 12:45:11 03/18/2023 US, neck, soft tissue completed [email or web address] [facility] [address] [place], [address], 03/19/2023 10:14:51 05/06/2023 US, breast, unilateral completed [facility] [address] [place] [address], [address], 05/07/2023 16:19:55 06/06/2023 CT, sinuses, w/o contrast completed [email or web address] [place] [address], [address], 06/07/2023 13:59:37 Procedure Notes None recorded. Medical Equipment None Reported. Allergies Allergen ID Allergen Name Allergen Category Reaction Reaction Severity Criticality Documentation Date Start Date Code Code System Note Provider Name and Address Organization Details Recorded Time 8767 Reglan medicatio n other Not available Not available 12/25/2022 9230 RxNorm Not Available [facility] 3 05:06:34 8768 naproxen medicatio n Not available Not available Not available 12/25/2022 7258 RxNorm Not Available [facility] 3 05:06:34 8769 Compazine medicatio n other Not available Not available 12/25/2022 14783 6 RxNorm Not Available [facility] 3 05:06:34 Medications Name Sig Start Date Stop Date Status Note LastModified by Organization Details LastModified Time amoxicilli n 500 mg capsule 04/30 completed Not Available Not Available Not Available clindamyci n HCl 300 mg capsule Take 1 capsule 3 times a day by oral route for 7 days. 04/30 completed Not Available Not Available Not Available Lidocaine Viscous 2 % mucosal solution [facility] EXPECT[facility] ATE 1 TABLESPO ON (15 ML) BY MOUTH 2 3 TIMES DAILY 01/22 completed Not Available Not Available Not Available fluconazol e 150 mg tablet 02/22 completed Not Available Not Available Not Available levonorges trel-ethin yl estradiol 0.1 mg-20 mcg tablet TAKE 1 TABLET DAILY active Not Available Not Available No t Available carbamazep ine ER 100 mg tablet,ext ended release,12 hr TAKE 1 TABLET BY MOUTH EVERY 12 HOURS 07/03 completed Not Available Not Available Not Available ondansetro n HCl 4 mg tablet TAKE 1 TABLET BY MOUTH EVERY 6 HOURS NEEDED FOR NAUSEA AND VOMITING 07/06 completed Not Available Not Available Not Available rizatripta n 10 mg tablet Take 1 tablet as needed by oral route as directed for 30 days. active Use half to full tab at the onset of migrain e. Do not take more than 1 pill in 24 hrs. Not Available Not Available Not Available Debrox 6.5 % ear drops INSTILL 4 DROPS INTO AFFECTED EAR(S) BY OTIC ROUTE 2 TIMES PER DAY 07/06 completed Not Available Not Available Not Available phentermin e 15 mg capsule Take 1 capsule every day by oral route before meals for 30 days. active [address] Not Available Not Available Not Available phentermin e 37.5 mg tablet Take 1 tablet every other day by oral route in the morning for 30 days. active Take 30 [address] Not Available Not Available Not Available acetaminop hen 300 mg-codeine 30 mg tablet TAKE 1 TABLET BY MOUTH 3 TIMES A DAY NEEDED 02/02 completed Not Available Not Available Not Available phentermin e 30 mg capsule TAKE 1 CAPSULE BY MOUTH EVERY DAY BEFORE A MEAL 07/06 completed Not Available Not Available Not Available amoxicilli n 500 mg tablet Take 1 tablet every 12 hours by oral route for 7 days. 04/30 completed Not Available Not Available Not Available amoxicilli n 875 mg tablet 02/22 completed Not Available Not Available Not Available carbamazep ine ER 200 mg tablet,ext ended release,12 hr 1 tab po q AM and 2 tab po q PM 07/31 completed Not Available Not Available Not Available rizatripta n 10 mg disintegra ting tablet 07/03 completed Not Available Not Available Not Available nystatin-t riamcinolo ne 100,000 unit/g-0.1 % topical cream 02/22 completed Not Available Not Available Not Available ibuprofen 200 mg tablet TAKE 1 TABLET BY MOUTH EVERY 6 HOURS FOR 10 DAYS 02/22 completed Not Available Not Available Not Available gabapentin 300 mg capsule TAKE 1 CAPSULE BY MOUTH TWO TIMES A DAY DIRECTED 01/22 completed Not Available Not Available Not Available diclofenac sodium 75 mg tablet,del ayed release Take 1 tablet twice a day by oral route as needed. active Not Available Not Available No t Available ergocalcif vincent (vitamin D2) 1,250 mcg (50,000 unit) capsule TAKE ONE CAPSULE BY MOUTH ONE TIME PER WEEK DIRECTED 01/22 completed Not Available Not Available Not Available sertraline 50 mg tablet TAKE 1 TABLET DAILY 03/04 completed Not Available Not Available Not Available amoxicilli n 875 mg-potassi um clavulanat e 125 mg tablet TAKE 1 TABLET BY MOUTH EVERY 12 HOURS FOR 10 DAYS 09/02 completed Not Available Not Available Not Available Ciprodex 0.3 %-0.1 % ear drops,susp ension 02/22 completed Not Available Not Available Not Available duloxetine 20 mg capsule,de layed release Take 1 capsule every day by oral route as directed for 30 days. active Not Available Not Available No t Available duloxetine 30 mg capsule,de layed release TAKE 1 CAPSULE BY MOUTH EVERY DAY 01/22 completed Not Available Not Available Not Available tizanidine 2 mg capsule TAKE ONE CAPSULE BY MOUTH EVERY 12 HOURS FOR 15 DAYS 07/03 completed Not Available Not Available Not Available hydrocodon e 5 mg-acetami nophen 300 mg tablet 02/22 completed Not Available Not Available Not Available Nurtec ODT 75 mg disintegra ting tablet DISSOLVE 1 TABLET BY MOUTH NEEDED AND DIRECTED FOR 30 DAYS active Not Available Not Available No t Available Vitals Date Recorded Body mass index (BMI) Body height Oxygen saturation Oxygen saturation in Arterial blood by Pulse oximetry Heart rate Body temperature Body weight Systolic blood pressure Diastolic blood pressure Provider Name and Address Organization Details Last Updated DateTime 2 23.6 kg/m2 160.02 cm 98 % 98 % 71 /min 98.1 [degF] 38755.5 g 122 mm[Hg] 80 mm[Hg] Not Available [employer] 3 04:50:28 Date Recorded Body height Body mass index (BMI) Body weight Body temperature Oxygen saturation Oxygen saturation in Arterial blood by Pulse oximetry Respiratory rate Provider Name and Address Organization Details Last Updated DateTime 3 160.02 cm 20.9 kg/m2 92172.9 g 97.9 [degF] 99 % 99 % 18 /min Chiquis Parra RN [facility] 3 11:31:10 Date Recorded Heart rate Systolic blood pressure Diastolic blood pressure Provider Name and Address Organization Details Last Updated DateTime 01/02/2023 95 /min 152 mm[Hg] 90 mm[Hg] Trenton Lal MD [address] [place] [address], [address], [place] [employer] [facility] [employer] 01/02/2023 12:38:00 Date Recorded Body height Body mass index (BMI) Body weight Body temperature Heart rate Respiratory rate Oxygen saturation Oxygen saturation in Arterial blood by Pulse oximetry Systolic blood pressure Diastolic blood pressure Provider Name and Address Organization Details Last Updated DateTime 3 160.02 cm 20.8 kg/m2 63083.1 1 g 98.3 [degF] 84 /min 16 /min 99 % 99 % 140 mm[Hg] 80 mm[Hg] Marycarmen Condon RN [facility] [employer] 3 08:08:51 Date Recorded Body height Body mass index (BMI) Body weight Body temperature Heart rate Respiratory rate Oxygen saturation Oxygen saturation in Arterial blood by Pulse oximetry Systolic blood pressure Diastolic blood pressure Provider Name and Address Organization Details Last Updated DateTime 3 160.02 cm 20.2 kg/m2 85638.8 8 g 98.2 [degF] 105 /min 16 /min 99 % 99 % 144 mm[Hg] 88 mm[Hg] Marycarmen Condon RN [facility] [employer] 12:08:43 Social History Question Answer Notes LastModified by Organization Details LastModified Time Tobacco Smoking Status Former Smoker KAYODE [facility] [place] [employer] 02/04/2023 07:57:15 Do You Have An Advance Directive? No [id number] Information not available 12/25/2022 What Is Your Level Of Alcohol Consumption? None [id number] Information not available 12/25/2022 Do You Wear A Helmet When Biking? No [email or web address] Information not available 02/04/2023 Is Blood Transfusion Acceptable In An Emergency? Yes Information not available 02/04/2023 What Is Your Level Of Caffeine Consumption? Moderate [id number] Information not available 12/25/2022 What Is Your Code Status? Full Code Information not available 02/04/2023 In The 14 Days Before Symptom Onset, Have You Had Close Contact With A Laboratory-conf irmed COVID-19 While That Case Was Ill? No [email or web address] Information not available 02/04/2023 In The 14 Days Before Symptom Onset, Have You Had Close Contact With A Person Who Is Under Investigation For COVID-19 While That Person Was Ill? No [email or web address] Information not available 02/04/2023 What Type Of Diet Are You Following? REGULAR [id number] Information not available 12/25/2022 What Is The Highest Grade Or Level Of School You Have Completed Or The Highest Degree You Have Received? 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 No [email or web address] Information not available 02/04/2023 Do You Use Insect Repellent Routinely? Yes Occasional [email or web address] Information not available 02/04/2023 Where Do You Live? SingleLevelHouse [email or web address] Information not available 02/04/2023 Do You Have A Medical Power Of [employer]ogn[employer] Bi Administrator? No [email or web address] Information not available 02/04/2023 How Many Children Do You Have? -1 Information not available 02/04/2023 Do You Have Any Pets? Yes [email or web address] Information not available 02/04/2023 Do You Use Protection During Sex? No Information not available 02/04/2023 What Is Your Relationship Status? [id number] Information not available 12/25/2022 Do You Use Your Seat Belt Or Car Seat Routinely? Yes [email or web address] Information not available 02/04/2023 Are You Sexually Active? Yes Information not available 02/04/2023 Do You Have Smoke And Carbon Monoxide Detectors In Your Home? Yes [email or web address] Information not available 02/04/2023 Are You Passively Exposed To Smoke? No Information not available 02/04/2023 Are There Any Smokers In Your House? No [email or web address] Information not available 02/04/2023 Do You Participate In Social Media? Yes Occasional [email or web address] Information not available 02/04/2023 Do You Feel Stressed (tense, Restless, Nervous, Or Anxious, Or Unable To Sleep At Night)? [id number] [email or web address] Information not available 02/04/2023 Do You Use Any Illicit Or Recreational Drugs? No [email or web address] Information not available 02/04/2023 Do You Use Sunscreen Routinely? Yes Occasional [email or web address] Information not available 02/04/2023 Have You Recently Traveled Abroad? No [email or web address] Information not available 02/04/2023 Are You Currently In School? Yes [email or web address] Information not available 02/04/2023 Do You Have Any Dietary Restrictions? No [email or web address] Information not available 02/04/2023 Sex: Female Functional Status Question Answer Note LastModified by Organizat ion Details LastModified Time What is your exercise level? Occasional [id number] Information not available 12/25/2022 Mental Status None recorded. Family History Relationship Description Onset Age of this Age Resolved Age Notes LastModified by Organization Details LastModified Time Mother Hypertensive disorder [id number] Not available 12/25/2022 04:42:56 Maternal Grandmother Family history of malignant neoplasm Stomac h [email or web address] Not available 02/04/2023 07:57:13 Notes:no breast, colon, ovar y Medical History Condition Response BLINDNESS N RHEUMATIC FEVER N KIDNEY STONES N BLADDER PROBLEMS N MRSA N OTHER # 1 N POLIO N LUNG DISEASE/DISORDER N HISTORY OF DRUG ABUSE N RADIATION / CHEMOTHERAPY N COPD N Other # 2 N BLOOD DISEASES N SURGERY N EAR OR HEARING PROBLEMS N MUMPS N SHINGLES N FEMALE PROBLEMS / INFECTIONS N DEPRESSION (INCLUDING POST ) N BOWEL PROBLEMS N STROKE/TIA N THYROID DISEASE N ULCERS N BENIGN PROSTATIC HYPERPLASIA N MEASLES N CERVICALGIA N TB SKIN TEST N HYPOTENSION N MYOCARDIAL INFARCTION N PARAPELGIA N OBESITY N GERD/NAUSEA N ANEURYSM N URINARY/BLADDER/KIDNEY PROBLEMS N CORONARY ARTERY DISEASE (CAD) N MENIERE'S DISEASE N ADDICTION CONCERNS N ENDOMETRIOSIS N USE OF BLOOD THINNERS N SKIN PROBLEMS N EMPHYSEMA N GASTROINTESTINAL DISORDER N MUSCLE,JOINT OR BONE PROBLEMS N GASTROINTESTINAL BLEEDING N BLOOD CLOTS N ASTHMA N CATARACTS N ERECTILE DYSFUNCTION N GI PROBLEMS N CHF N Low Testosterone N NEUROPATHY N INFERTILITY N AIDS/HIV N FRACTURES N CHEMOTHERAPY / RADIATION N VISION/EYE PROBLEMS N LIVER DISEASE N MALE HYPOGONADISM N HYPERTENSION N TOURETTE'S N ANXIETY DISORDER N BLOOD TRANSFUSION N ANEMIA/BLOOD DISORDER N CHRONIC EAR INFECTIONS N BRONCHITIS N TUBERCULOSIS N GLAUCOMA N FOOT PROBLEM N DIVERTICULITIS N SLEEP APNEA N CHICKENPOX N ALLERGIES/HAYFEVER N INFECTIOUS DISEASE N PROSTATE N HEART ARRHYTHMIA N INSOMNIA N HIGH CHOLESTEROL / HYPERLIPIDEMIA N HYPERTHYROIDISM N EYE PROBLEMS N EATING DISORDER N EDEMA N CHRONIC PAIN SYNDROME N CONSTIPATION N CAROTID BLOCKAGE N BACK / NECK PROBLEMS N HAVE YOU BEEN HOSPITALIZED OR SEEN IN [facility] IN THE PAST YEAR ? N ATHEROSCLEROSIS N BREAST PROBLEMS N DIALYSIS N ECZEMA N FIBROMYALGIA N OSTEOPOROSIS N ARTHRITIS N NO SIGNIFICANT PAST MEDICAL HISTORY N APPENDICITIS N DIABETES, TYPE N BAD TEETH N HEARTBURN / REFLUX N ADD/ADHD N AUTISM SPECTRUM DISORDER (ASD) N HEPATITIS / LIVER DISEASE N PULMONARY DISEASE N GOUT N SLEEP DISORDER N ALZHEIMER'S DISEASE N PAIN N HERPES N DEMENTIA N SEIZURES/EPILEPSY N HEADACHES/MIGRAINES N VASCULAR DISEASE N PACEMAKER N DIZZINESS N KIDNEY DISEASE N HEART DISEASE/HEART PROBLEMS N SCARLET FEVER N MULTIPLE SCLEROSIS N MENTAL DISORDER/ILLNESS N DEVELOPMENTAL OR BEHAVIORAL DISORDERS N CARDIAC ARRHYTHMIA N CANCER: SPECIFY N PNEUMONIA N Gall Stones N ATRIAL FIBRILLATION N PULMONARY EMBOLISM N AUTOIMMUNE DISEASE N Gynecological History Statement/Question Response Abnormal Pap N Flow Heavy Date of LMP 02/06/2023 STIs/STDs N Dislike of Light during Menstrual Headac he Y Date of Last Pap 01/22/2022 Duration of Flow (days) 2 Most Recent Mammogram Current Control Method None Breast Problems no How many live births 2 Date of Last Mammogram 02/07/2023 Date of Last Colonoscopy Frequency of Cycle (Q days) 28 Most Recent Bone Density Sexually Active? Y Weight gain N Menses Monthly Y Desired Control Method None Discharge brown Obstetrics History GPAL:G 0 P 0 0 0 0 Immunizations Vaccine Type Date Status Note Provider Nam e and Address Organization Details Recorded Time Influenza, split virus, quadrivalent, preservative 0 completed Not Available [facility] 12/25/2022 05:06:14 influenza, unspecified formulation 9 completed Not Available [facility] 12/25/2022 05:06:15 Tdap 7 completed Not Available [facility] 12/25/2022 05:06:15 Influenza, split virus, quadrivalent, PF 7 completed Not Available [facility] 12/25/2022 05:06:15 Past Encounters Encounter ID Performer Location Encounter Start Date Encounter Closed Date Diagnosis/Indication Diagnosis SNOMED-CT Code Diagnosis ICD10 Code Diagnosis Note [id number] [address] [address] 01/22/2022 00:00:00 01/22/2022 13:58:50 [id number] Trenton Lal MD [address] [address] 01/02/2023 11:23:59 01/02/2023 12:50:15 Abdominal pain 10256561 R10.9 Suprapubic pain 08020885 6 R10.30 Trigeminal neuralgia 316 38133 G50.0 Elevated blood-pressure reading without diagnosis of hypertension 466369314 R03.0 [id number] Marycarmen Rojo NP [address] [address] 02/04/2023 07:55:19 02/04/2023 08:20:47 Screening mammography 13855795 Z12.31 Will get mammogram ordered. Axillary lymphadenopathy 875711056 R59.0 heat compress prn. Need labs and mammogram for review. [id number] Marycarmen Rojo NP [address] [address] 03/05/2023 11:50:58 03/05/2023 12:42:09 Axillary lymphadenopathy 543457060 R59.0 No change. Has several knots now. Referring for US and consider Hematology /oncology Suprapubic pain 10911871 [address] due to cost. Has swollen lymph nodes in groin. Inflammat ion on 12/2021 pap. Pain of right breast [id number] 2657364 N64.4 US breast right Cervical lymphadenopathy 742643553 R59.0 US neck right. Health Concerns Section Related Observation LastModified by Organization Detai ls LastModified Time None Recorded Concern Status LastModified by Organization Details LastModified Time None Recorded Advance Directives Directive N: Payers Encounter Date Sequence Insurance Name Policy Number Policy Terry Covered Member ID Terry Member ID Guarantor Name 01/02/2023 1 [facility] [id number] Tenzin Howell [id number] Zainab Howell 02/04/2023 1 [facility] [id number] Tenzin Howell [id number] Zainab Howell 03/05/2023 1 [facility] [id number] Tenzin Howell [id number] Zainab Howell Notes Date Note Type Note Provider Name and Address Organization Details Recorded Time 01/02/2023 text/html ACV: C/o abdominal pain for last 1 week. Pt says its all over her abdomen, no particular areas. More over her Lt side and suprapubic area. Its sharp, radiating to her Lt side of back, no associated symptoms with it. Denies any urinary symptoms. Denies any chance of . Last BM yesterday and pt says her BMs are normal, no blood in stool. 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 Pt is past due for her visit and has not come for 2+ yrs. Trenton Lal MD [address] [facility], [facility] [address], [place], [address], [facility] [employer] 01/02/2023 12:40:11 02/04/2023 text/html Here for tenderness in right lateral chest armpit area. Right lateral breast and armpit with tenderness. Not sure if any lumps or bumps. Has normal monthly periods, but symptoms not correlated to anything at this point. Symptoms for 1 mo. States she feels poorly, cbc the past week was good with elevated monocytes, normal WBC. 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 States she plans to get everything done that was asked last visit. Marycarmen Rojo NP [address], [facility] [address], [place], [address], [employer] 02/04/2023 08:26:54 03/05/2023 text/html Still having ongoing issues with knots and pain that is affecting life, making her feel poorly and not sure what needs to be done. 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 Labs drawn 02/07/23 normal for CBC, CMP, Sed rate.No recent immunization or illness prior to onset of symptoms. Marycarmen Rojo NP [address], [facility] [address], [place], [address], [employer] 03/05/2023 12:39:23 OBGyn Episode No OBEpisode recorded.
--- OUTSIDE RECORDS SUMMARY | 2024-11-24 15:25 | XMS_ITS | Referral Summary ---
Author Organization [facility] Virtual Care Address [address] [place] [phone] Phone Care Team Providers Care Critical Care Transport Nurse Name Role Phone AnivalSandhya moya YESI Primary Care Provider [phone] Allergies Active Allergy Reactions Criticality Noted Date [...] p.r.n. 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 Continue [...] effects. Assessment & Plan (12/11/2023 1:36 PM DRUM DYEING MACHINE OPERATOR): Increase paxil to 20 mg. Pt [...] 03/02/2020 Assessment & Plan (12/11/2023 1:36 PM DRUM DYEING MACHINE OPERATOR): Labs normal. Assessment & Plan (06/24/2023 2:10 PM CDT): History of subclinical hypothyroidism labs pending. Hyperlipidemia 02/02/2019 Assessment & Plan (06/25/2024 11:39 AM CDT): Continue following a heart healthy diet. Assessment & Plan (12/11/2023 1:38 PM DRUM DYEING MACHINE OPERATOR): Within normal limits. Continue a heart healthy Assessment & Plan (06/24/2023 2:11 PM CDT): History of elevated hyperlipidemia labs pending. Vitamin D deficiency 02/02/2019 Assessment & Plan (06/25/2024 11:39 AM CDT): Continue vitamin-D supplement. Assessment & Plan (12/11/2023 1:37 PM DRUM DYEING MACHINE OPERATOR): Continue vitamin-D supplement. Assessment & Plan (06/24/2023 2:10 PM CDT): History of vitamin-D deficiency labs pending. Resolved Problems Problem Noted Date Diagnosed Date Resolved Date Venous congestion 12/18/2023 06/25/2024 Assessment & Plan (12/18/2023 2:57 PM DRUM DYEING MACHINE OPERATOR): Impression: Patient has discoloration to the [...] 10/15/202305/29 Assessment & Plan (12/11/2023 1:40 PM DRUM DYEING MACHINE OPERATOR): Weight loss has plateaued. Patient is [...] Unspecified 12/11/2023(Deferr ed: Patient decision),07/28/2022(Deferred: Patient decision),09/10/2019,09/08/2013,2011 Raul ([facility]) SARS-CoV-2 Vaccination 02/01/2021 Tdap 09/02/2017 Social History Tobacco Use Types Packs/Day Years [...] on file Legal Sex Female 5:46 AM DRUM DYEING MACHINE OPERATOR Gender Identity Female 12/07/2023 12:22 AM DRUM DYEING MACHINE OPERATOR Sexual Orientation Straight 12/07/2023 12 :22 AM DRUM DYEING MACHINE OPERATOR Last Filed Vital Signs Vital Sign Reading [...] 06/25/2024 9:39 AM CDT Plan of Treatment Not on file Procedures Procedure Name Priority Date/Time Associated Diagnosis Comments HIGH RISK HPV DNA DETECTION WITH GENOTYPING Routine 07/25/2023 10:25 AM CDT Cervical cancer screening from Last 3 Months or Most Recently Relevant to Health Maintenance Results * High Risk HPV DNA Detection with Genotyping (Molecular component) (07/25/2023 10:25 AM CDT) HPV HR 16 Not Detected Not Detected JUANIS Comment:Testing performed by : [facility], [address] [place]., [address] HPV HR 18 Not Detected Not Detected JUANIS Comment:Testing performed by : [facility], [address] [place]., [address] HPV HR Non 16/18 Not Detected Not Detected JUANIS Comment: Interpretive Data Nucleic acid amplification for [...] this test have been verified by the [facility] laboratory. Correlate with separately reported cytology results, as applicable. Interpretive data last revised 23 Testing performed by: [facility], [address] [facility], [place]., [address] Endocervical 07/25/2023 10:2 5 AM CDT 07/28/2023 12:43 PM CDT Narrative JUANIS - 07/29/2023 1:57 AM CDT Clinical history and diagnosis->screening Testing type->Screening Last menstrual period (date if known)->unknown Menstrual status->Irregular Contraceptive use->None Previous atypical cytology->None Sandhya Mosquera NP LAB BODY FLUIDS AND STOOLS OR DERABLES Final Result Performing Organization Address City/State/[facility] Co de Phone Number [facility] [address] [facility] Department [place] [address] from Last 3 Months or Most Recently Relevant to Health Maintenance Insurance [facility] [place] [address] [facility] [employer] [facility] [employer] Advance Directives For more information, please contact: [phone] * Full Code (Latest Code Status on File) Date Activated Date Inactivated Comments 01/28/2024 10:55 AM 01/28/2024 5:56 PM * Full Code Date Activated Date Inactivated Comments 01/28/2024 10:55 AM 01/28/2024 10:55 AM Care Teams Critical Care Transport Nurse Relationship Specialty Start Date End Date Sandhya Mosquera NP [address] [place] [address] (work) PCP - General Internal Medicine 06/24/23
== END 2024-11-24 15:09 | disposition home or self-care (01) ==
PROVIDERS: Emergency Provider Nurse Practitioner Family; PCP Family Medicine
DX: N39.0 Urinary tract infection, site not specified (principal)
CPT/HCPCS: 81003; 87086; 99213; G0463